=== PATIENT | male | born 1990 | race American Indian/Alaskan Native ===

== ENCOUNTER 2016-07-07 14:44 | Emergency (ER) | payer OTHER ==
[2016-07-07 15:01] VITALS: BP 119/87
[2016-07-07] MEDS ORDERED: TORADOL IM ONE (18:19)
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
== END 2016-07-07 20:59 | disposition home or self-care (01) ==
LOC: ED 14:44
DX: S49.91XA Unspecified injury of right shoulder and upper arm, initial encounter (principal); V89.2XXA Person injured in unspecified motor-vehicle accident, traffic, initial encounter; Y92.413 State road as the place of occurrence of the external cause; Y93.89 Activity, other specified; Y99.8 Other external cause status; F17.200 Nicotine dependence, unspecified, uncomplicated
CPT/HCPCS: 73030; 96372; 99283; J1885